=== PATIENT | male | born 1970 | race Caucasian/White ===

== ENCOUNTER 2025-02-03 16:07 | Emergency (ER) | payer OTHER ==
[~2025-02-03] VITALS: Ht 177.8 cm; Wt 91.0 kg
[2025-02-03 16:12] VITALS: O2SAT 100
[2025-02-03] MEDS: ACETAMINOPHEN 325MG TABLET PO ONE (19:02)
[2025-02-03] MEDS: SODIUM CHLORIDE 0.9% 1,000 ML IV ONE (19:02)
[2025-02-03 19:04] LABS: HEMATOCRIT. 44.6 % (42.0-52.0); HEMOGLOBIN. 14.9 g/dL (14.0-18.0); MEAN PLATELET VOLUME 7.9 fl (7.4-10.4); PLATELET 246 x1000/uL (130-400); RED BLOOD CELL COUNT 5.06 mill/uL (4.7-6.1); RED CELL DISTRIBUTION WIDTH 13.4 % (11.6-14.6)
[2025-02-03 19:18] LABS: CREATININE 1.0 mg/dL (0.6-1.3); UREA NITROGEN BLOOD 7 mg/dL (9-23)
[2025-02-03 19:19] LABS: ETHANOL BLOOD < 10 mg/dL (<10)
[2025-02-03 19:20] LABS: ASPARTATE AMINOTRANSFERASE 43 IU/L (<34); BILIRUBIN DIRECT 0.2 mg/dL (<=3.0); BILIRUBIN TOTAL 0.6 mg/dL (0.1-1.0)
[2025-02-03 19:21] LABS: PROTEIN TOTAL 7.1 g/dL (6.0-8.3)
[2025-02-03 19:23] LABS: INR 1.0
[2025-02-03 19:24] LABS: EOSINOPHILS % MANUAL 2.0 % (0.0-5.0); LYMPHOCYTES % MANUAL 7.0 % (20.0-50.0); MONOCYTES % MANUAL 4.0 % (2.0-8.0); NEUTROPHILS % MANUAL 87.0 % (45.0-75.0); PLATELET ESTIMATE NORMAL
[2025-02-03] MEDS: KETOROLAC 30MG/ML VIAL IV ONE (19:57)
[2025-02-03] MEDS ORDERED: TOPUD PO (20:29)
[2025-02-03] MEDS ORDERED: IBUP-2028 MT (20:29)
[2025-02-03 21:02] VITALS: BP 125/83; PULSE 60; RESP 20; TEMP 36.8; O2SAT 100
[2025-02-03] MEDS ORDERED: IOHEXOL-350 100 ML BOTTLE ONE (22:50)
== END 2025-02-03 21:15 | disposition home or self-care (01) ==
LOC: ER 16:07 → CMPBEDREQ 22:49
DX: R51.9 Headache, unspecified (principal); R42 Dizziness and giddiness; E78.00 Pure hypercholesterolemia, unspecified; R10.2 Pelvic and perineal pain; Z88.0 Allergy status to penicillin; Z79.899 Other long term (current) drug therapy; Z98.890 Other specified postprocedural states
CPT/HCPCS: 80076; 80048; 80320; 83735; 85025; 85610; 85730; 36415; 71045; 70496; 70498; 70450; 93005; 96361; 96374; 99291; Q9967; J1885; J7030; G0480